=== PATIENT | female | born 2000 | race African-American/Black ===

== ENCOUNTER 2020-02-03 15:06 | Emergency (ER) | payer SELFPAY ==
[~2020-02-03] VITALS: Ht 167.6 cm; Wt 93.0 kg
[2020-02-03 16:11] LABS: BASOPHILS % (AUTO) 1 % (0-1); EOSINOPHILS % (AUTO) 1 % (1-7); LYMPHOCYTES % (AUTO) 31 % (22-44); MEAN CORPUSCULAR HEMOGLOBIN 26.3 pg (27.0-34.8); MEAN CORPUSCULAR HGB CONC 32.5 g/dL (32.4-35.8); MEAN PLATELET VOLUME 8.6 fL (7.4-10.4); MONOCYTES % (AUTO) 7 % (2-9); NEUTROPHILS % (AUTO) 61 % (42-75); PLATELET COUNT 398 x10^3/uL (130-400); RED BLOOD COUNT 5.18 x10^6/uL (3.82-5.3)
[2020-02-03 16:13] LABS: MD NO
[2020-02-03 16:23] LABS: ANION GAP 3 mmol/L (5-15); CALCIUM 9.1 mg/dL (8.5-10.1); CHLORIDE 106 mmol/L (98-107)
[2020-02-03 16:29] LABS: ALANINE AMINOTRANSFERASE 14 U/L (12-78); ALKALINE PHOSPHATASE 99 U/L (45-117); BILIRUBIN,TOTAL 0.5 mg/dL (0.2-1.0); CREATININE 0.73 mg/dL (0.55-1.02); TOTAL PROTEIN 8.3 g/dL (6.4-8.2)
--- NOTE | 2020-02-03 16:37 | NUR ---
SOCIAL SCIENCES PROFESSOR: CALLED FOR ROOM, NO ANSWER
--- NOTE | 2020-02-03 17:00 | NUR ---
INSURANCE SPECIAL AGENT: PT TO ROOM FROM [facility]
[2020-02-03] MEDS ORDERED: SODIUM CHLORIDE FLUSH 10ML SYR IVF ONE (17:30)
--- NOTE | 2020-02-03 17:57 | NUR ---
RETURNED FROM CT AND PROVIDER PREPARING TO DO PELVIC EXAM
[2020-02-03] MEDS ORDERED: OMNIPAQUE 350 MG/ML, 100ML BOTTLE ONE (17:58)
--- NOTE | 2020-02-03 18:05 | NUR ---
PROVIDER BEDSIDE FOR VAGINAL EXAM.
[2020-02-03] MEDS ORDERED: AZITHROMYCIN 500 MG TABLET PO ONE (18:30)
[2020-02-03] MEDS ORDERED: CEFTRIAXONE 250 MG IM ONE (18:30)
[2020-02-03 18:39] LABS: CLUE CELLS NONE SEEN (NONE SEEN); WET PREP WBCS FEW (FEW)
[2020-02-03 18:46] LABS: MICROSCOPIC NOT IND
--- NOTE | 2020-02-03 18:51 | NUR ---
BEDSIDE REPORT RECEIVED FROM ARACELY PARRISH.
[2020-02-03] MEDS ORDERED: AZITHROMYCIN 250 MG TABLET ONE (18:56)
[2020-02-03] MEDS ORDERED: CEFTRIAXONE 250 MG ONE (18:56)
[2020-02-03] MEDS ORDERED: KETOROLAC 30 MG/1 ML IVPush ONE (19:00)
[2020-02-03] MEDS ORDERED: KETOROLAC 30 MG/1 ML ONE (19:03)
[2020-02-03 19:10] VITALS: BP 122/84
--- NOTE | 2020-02-03 19:32 | NUR ---
Patient given discharge instructions and they have confirmed that they understand the instructions. Patient ambulatory with steady gait.
== END 2020-02-03 19:35 | disposition home or self-care (01) ==
LOC: ED 18:25
DX: S30.1XXA Contusion of abdominal wall, initial encounter (principal); N93.8 Other specified abnormal uterine and vaginal bleeding; F17.200 Nicotine dependence, unspecified, uncomplicated; X58.XXXA Exposure to other specified factors, initial encounter; Y93.89 Activity, other specified; Y92.89 Other specified places as the place of occurrence of the external cause; Y99.8 Other external cause status
CPT/HCPCS: 36415; 74177; 76830; 80053; 81003; 84703; 85025; 87210; 87491; 87591; 87808; 96372; 96374; 99285; J0696; J1885; Q9967